=== PATIENT | female | born 1935 | race Caucasian/White ===

== ENCOUNTER → 2018-04-24 | Outpatient (CLI) | payer MEDICARE, BC ==
[~2018-04-24] MED LIST: ADULT LOW DOSE81 MG PO; CENTRUM TABLET1 EACH PO; CITRACAL + BON1 EACH PO; DONA1500 MG PO; FAMVIR250 MG PO; FISH OIL 1,2001 EAC4 PO; FISHOIL; GLUCOSAMINE S1000 M2; MAGNESIUM250 M1 PO; METOPROLOL SUCC25 M1 PO; NOLVADEX20 MG; NORCO 5-325 TA1 EACH PO; VIT B 12 PO; [UNRECOGNIZED DRUG - OTHER] PO
[2018-04-24 13:11] LABS: HEMATOCRIT 37.6 % (37.0-47.0); HEMOGLOBIN 12.6 gm/dL (12.0-15.0); MCH 30.8 pg (26.0-34.0); MCHC 33.5 g/dL (28.0-37.0); MPV 7.4 fl. (7.2-11.1); NUCLEATED RBCS 0 /100WBC; PLATELET COUNT* 181 thou/uL (150-400); RBC 4.09 mil/uL (4.20-5.00); RDW-CV 14.6 % (10.5-14.5); WBC 5.5 thou/uL (4.0-11.0)
[2018-04-24 13:25] LABS: ALBUMIN 3.3 g/dL (3.4-5.0); CALCIUM 8.5 mg/dL (8.5-10.1); CREATININE 0.8 mg/dL (0.6-1.3); POTASSIUM 4.1 mmol/L (3.5-5.1); TOTAL BILIRUBIN 0.3 mg/dL (<0.1-1.0)
[2018-04-24 13:36] LABS: ABSOLUTE BASOPHILS 0.1 thou/uL (0.0-0.2); ABSOLUTE EOSINOPHILS 0.3 thou/uL (0.0-0.7); ABSOLUTE LYMPHOCYTES 0.3 thou/uL (0.8-5.3); ABSOLUTE NEUTROPHILS 4.8 thou/uL (1.6-8.1); PLATELET ESTIMATE ADEQUATE
== END ==
LOC: M.RAD 12:48
PROVIDERS: Internal Medicine Hematology & Oncology
DX: Z12.31 Encounter for screening mammogram for malignant neoplasm of breast (principal)

== ENCOUNTER → 2018-08-23 | Outpatient (CLI) | payer MEDICARE, BC | LOC: M.RAD 09:51 | DX: M81.0 Age-related osteoporosis without current pathological fracture (principal); Z78.0 Asymptomatic menopausal state ==

== ENCOUNTER → 2018-10-30 | Outpatient (CLI) | payer MEDICARE, BC | LOC: M.RAD 13:00 | DX: C50.912 Malignant neoplasm of unspecified site of left female breast (principal); Z17.1 Estrogen receptor negative status [ER-]; Z88.8 Allergy status to other drugs, medicaments and biological substances; Z90.12 Acquired absence of left breast and nipple ==

== ENCOUNTER 2018-11-06 06:20 | Emergency (ER) | payer MEDICARE, BC ==
[~2018-11-06] VITALS: Ht 160 cm; Wt 62.1 kg
[2018-11-06] MEDS ORDERED: PACERONE 200 M200 M1 PO (06:44)
[2018-11-06] MEDS ORDERED: ACETAMINOPHEN-1 EAC1 PO (09:03)
[2018-11-06 09:09] VITALS: BP 184/76
== END 2018-11-06 09:09 | disposition home or self-care (01) ==
LOC: M.ERS 06:20
DX: S63.502A Unspecified sprain of left wrist, initial encounter (principal); I10 Essential (primary) hypertension; M19.90 Unspecified osteoarthritis, unspecified site; Z85.828 Personal history of other malignant neoplasm of skin; Z88.8 Allergy status to other drugs, medicaments and biological substances; W01.10XA Fall on same level from slipping, tripping and stumbling with subsequent striking against unspecified object, initial encounter; Y93.89 Activity, other specified; Y92.89 Other specified places as the place of occurrence of the external cause; Y99.8 Other external cause status

== ENCOUNTER → 2019-06-12 | Outpatient (CLI) | payer MEDICARE, BC ==
[~2019-06-12] MED LIST changes: +ACETAMINOPHEN-1 EAC1 PO; +PACERONE 200 M200 M1 PO
== END ==
LOC: M.RAD 13:14
DX: C50.912 Malignant neoplasm of unspecified site of left female breast (principal); Z17.1 Estrogen receptor negative status [ER-]

== ENCOUNTER → 2019-12-21 | Outpatient (CLI) | payer MEDICARE, BC | LOC: M.RAD 11:58 | DX: M19.031 Primary osteoarthritis, right wrist (principal) ==

== ENCOUNTER → 2020-06-13 | Outpatient (CLI) | payer MEDICARE, BC | LOC: M.RAD 12:02 | PROVIDERS: ATTEND Internal Medicine Hematology & Oncology | DX: Z12.31 Encounter for screening mammogram for malignant neoplasm of breast (principal) ==

== ENCOUNTER → 2021-06-12 | Outpatient (CLI) | payer MEDICARE, BC | LOC: M.RAD 10:40 | PROVIDERS: ATTEND Nurse Practitioner Family | DX: Z12.31 Encounter for screening mammogram for malignant neoplasm of breast (principal) ==